=== PATIENT | female | born 2000 ===

== ENCOUNTER 2024-05-20 19:03 | Emergency (ER) | payer MEDICAID ==
[~2024-05-20] VITALS: Ht 170.2 cm; Wt 62.0 kg
[2024-05-20 19:05] VITALS: BP 111/65; PULSE 65; RESP 18; TEMP 98.8; O2SAT 99
[2024-05-20 21:02] LABS: BACTERIA,URINE Few /HPF (None Seen); RBC,URINE 0-2 /HPF (0-2); SQUAMOUS EPITHELIAL CELL,UR Few /LPF (None Seen)
[2024-05-20] MEDS ORDERED: PHEN-846 PO (22:47)
[2024-05-20] MEDS: IBUPROFEN 400 MG TABLET PO ONE (22:58)
[2024-05-20] MEDS: PHENAZOPYRIDINE HCL 100 MG TABLET PO ONE (22:58)
== END 2024-05-20 23:02 | disposition home or self-care (01) ==
LOC: EMS 19:03
DX: R30.0 Dysuria (principal); Z91.013 Allergy to seafood; Z87.440 Personal history of urinary (tract) infections
CPT/HCPCS: 81001; 84703; 87086; 87186; 99283